=== PATIENT | male | born 1970 | race Caucasian/White ===

== ENCOUNTER 2021-01-12 19:57 | Observation (INO) | payer BC ==
[2021-01-12] MEDS ORDERED: Aspirin 325 MG TAB ONE (20:29)
[2021-01-12] MEDS ORDERED: Aspirin Chewable 81 MG TAB ONE (20:39)
[2021-01-12] MEDS ORDERED: Lorazepam 2 MG/ML VIAL ONE (20:59)
[2021-01-12] MEDS ORDERED: Ondansetron PF 4 MG/2 ML Vial IVP PRN (21:09)
[2021-01-12] MEDS ORDERED: hydrALAZINE 20 MG/ML VIAL SLOW IVP PRN (21:09)
[2021-01-12] MEDS ORDERED: Scopolamine 1.5 mg/72 hour Patch TD SCH (21:15)
[2021-01-13 00:01] VITALS: BMI 33.7
[2021-01-13] MEDS: Sodium Chloride 0.9% 1,000 ML IV SCH ×2 (01:11→11:19)
[2021-01-13 05:26] LABS: ALT (SGPT) 29 U/L (8-55); AST (SGOT) 17 U/L (5-34); Albumin 3.7 g/dL (3.5-5.0); Alkaline Phosphatase 75 U/L (40-110); Anion Gap 8 mmol/L (10-20); BUN (Urea Nitrogen) 8 mg/dL (8.4-25.7); Bilirubin, Total 0.5 mg/dL (0.2-1.2); Calc. Creatinine Clearance 152 mL/min (70-130); Calcium 9.3 mg/dL (7.8-10.44); Carbon Dioxide 29 mmol/L (22-29); Cardiac Risk 5.6 (Less than 4.5); Chloride 105 mmol/L (98-107); Cholesterol 220 mg/dl (< 200 Desired); Globulin 2.9 g/dL (2.4-3.5); Glucose 98 mg/dL (70-105); HDL Cholesterol 39 mg/dL (>60 Neg Risk); LDL Cholesterol, Calculated 134 mg/dL; Potassium 4.2 mmol/L (3.5-5.1); Protein, Total 6.6 g/dL (6.0-8.3); Sodium 138 mmol/L (136-145); Triglycerides 237 mg/dL (Less than 150)
[2021-01-13 05:33] LABS: Band 2 % (5-11); Hemoglobin 14.1 g/dL (14.0-18.0); Lymphocytes 22 % (21-51); MDiff Complete? YES; Mean Corpuscular HGB CONC 34.5 g/dL (32.0-36.0); Mean Corpuscular Hemoglobin 31.4 pg (27.0-31.0); Mean Platelet Volume 6.1 fL (7.4-10.4); Monocytes 4 % (0-10); Neutrophil 62 % (42-75); Nucleated RBC 1 % (0); Platelet Count 243 thou/uL (130-400); Platelet Morphology Comment Appears Adequate; RBC Morphology Normal; Reactive Lymphocytes 10 % (0-10); Red Blood Cell (RBC) Count 4.49 mill/uL (4.70-6.10); White Blood Cell (WBC) Count 7.6 thou/uL (4.8-10.8)
[2021-01-13] MEDS: Famotidine 20 MG TAB PO SCH ×2 (08:57→22:39)
[2021-01-13] MEDS: Aspirin 81 mg Enteric Coated Tablet PO SCH (08:57)
[2021-01-13] MEDS: Heparin 5,000 UNITS/ML VIAL SC SCH ×2 (08:57→22:39)
[2021-01-13] MEDS: Clopidogrel Bisulfate 75 MG TAB PO SCH (08:57)
[2021-01-13] MEDS ORDERED: Acetaminophen 650 MG/20.3 ML UDCUP PO PRN (11:02)
[2021-01-13] MEDS: Meclizine HCl 25 MG TAB PO SCH ×2 (13:00→22:39)
[2021-01-13] MEDS ORDERED: Atorvastatin Calcium 40 MG TAB PO SCH (21:00)
[2021-01-14] MEDS: Meclizine HCl 25 MG TAB PO SCH (04:01)
[2021-01-14] MEDS: Sodium Chloride 0.9% 1,000 ML IV SCH (04:02)
[2021-01-14 08:06] VITALS: TEMP 97.8
[2021-01-14 08:56] VITALS: BP 140/83
[2021-01-14] MEDS: Famotidine 20 MG TAB PO SCH (10:02)
[2021-01-14] MEDS: Aspirin 81 mg Enteric Coated Tablet PO SCH (10:02)
[2021-01-14] MEDS: Heparin 5,000 UNITS/ML VIAL SC SCH (10:02)
[2021-01-14] MEDS: Clopidogrel Bisulfate 75 MG TAB PO SCH (10:02)
[2021-01-14 13:56] LABS: SARS-CoV-2 PCR by NAA Not Detected (NotDetected)
== END 2021-01-14 11:29 | disposition home or self-care (01) ==
LOC: ERS 19:57 → 3SE 21:23
PROVIDERS: ADMIT Internal Medicine; ATTEND Internal Medicine
DX: H81.10 Benign paroxysmal vertigo, unspecified ear (principal); E78.5 Hyperlipidemia, unspecified; R94.6 Abnormal results of thyroid function studies; Z20.822 Contact with and (suspected) exposure to COVID-19
CPT/HCPCS: 36415; 70551; 80053; 80061; 84439; 84443; 85007; 85027; 96374; G0378; J1644; J2060; J7050; U0003; U0005